=== PATIENT | female | born 1950 | race Caucasian/White ===

== ENCOUNTER 2016-12-15 01:18 | Emergency (ER) | payer OTHER ==
[~2016-12-15] VITALS: Ht 154.9 cm; Wt 93.8 kg
[2016-12-15 01:23] VITALS: Ht 154.9 cm; Wt 93.8 kg
--- OUTSIDE RECORDS SUMMARY | 2016-12-15 01:23 | XMS REPORT | Continuity of Care Document ---
Author Author [facility] Organization [facility] Address Unknown Phone Unavailable Allergies Active Description Code Type Severity Reaction Onset Reported/Identified Relationship to Patient Clinical Status Yes No Known Allergies Drug Allergy 12/27/2011 Yes No Known Allergies Drug Allergy N/A N/A 12/27/2011 Yes No Known Drug Allergies Drug Allergy 12/27/2011 Yes No Known Drug Allergies Drug Allergy N/A N/A 12/27/2011 Yes No Known Food Allergies Food Allergy 12/27/2011 Yes No Known Food Allergies Food Allergy N/A N/A 12/27/2011 Medications Problems Date Dx Coded Attending Type Code Diagnosis Diagnosed By 08/10/2012 Rosette Herzog MD Final 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 08/10/2012 Rosette Herzog MD Final 427.89 OTH CARDIAC DYSRHYTHMIAS 08/10/2012 Rosette Herzog MD Final 786.50 CHEST PAIN NOS 08/10/2012 Rosette Herzog MD Final 794.31 NONSPECIFIC ABN EKG/ECG 09/09/2012 Rosette Herzog MD Final 240.9 GOITER NOS 09/09/2012 Rosette Herzog MD Final 246.9 THYROID DISORDER NOS 09/09/2012 Rosette Herzog MD Admitting 789.00 ABDOMINAL PAIN-SITE NOS 09/09/2012 Rosette Herzog MD Admitting 240.9 GOITER NOS 12/01/2012 Kevin Greene MD Final 724.01 SPINAL STENOSIS-THORACIC 12/01/2012 Kevin Greene MD Admitting 724.5 BACKACHE NOS 12/01/2012 Kevin Greene MD Final 805.2 FX DORSAL VERTEBRA-CLOSE 12/01/2012 Kevin Greene MD External E885.9 FALL FROM TRIPPING NEC Procedures Results Encounters ACCT No. Visit Date/Time Discharge Status Pt. Type Provider Facility Loc./Unit Complaint [id number] 12/01/2012 09:58:00 2012 23:59:59 CLS Outpatient Ramona BOOGIE, Kevin Pineda [facility] [id number] 09/09/2012 08:50:00 2012 23:59:59 CLS Outpatient Mino BOOGIE, Rosette Cash [facility] [id number] 08/10/2012 09:00:00 2012 23:59:59 CLS Outpatient Mino BOOGIE, Rosette Wang [facility]
[2016-12-15] MEDS ORDERED: NORMAL SALINE 1,000 ML IV ONE (01:45)
[2016-12-15] MEDS ORDERED: HYDROMORPHONE 2mg/ml INJECTION IV ONE (01:45)
[2016-12-15] MEDS ORDERED: ORPHENADRINE 60mg/2ml INJECTION IV ONE (01:45)
[2016-12-15] MEDS ORDERED: KETOROLAC 30mg/ml INJECTION IV ONE (01:45)
--- NOTE | 2016-12-15 01:47 | ERPDOC ---
Departure Disposition Decision Date: December 15, 2016 Disposition Decision Time: 03:24 Disposition: 01 DISCHARGED HOME, SELF-CARE Impression Impression Impression: Primary Impression: Back muscle spasm Additional Impression: Intercostal muscle pain Severity: Severe Condition: Improved Seen By: Physician only Patient Instructions: Back Pain (ED) Problems/Meds/Labs Reviewed?: Yes Medications reviewed and manag: Yes Additional Instructions: Take ibuprofen 600 mg 4 times daily or Aleve 2 tablets twice daily for baseline pain control Take baclofen 10 mg one tablet 3 times daily for the next 2 days, then as needed at any time for muscle spasms/muscle pain Follow up care ordered?: Yes Mental Status: Alert Scripts Baclofen (Baclofen) 10 Mg Tablet 10 MG PO TID for SPASMS, #30 TAB 0 Refills Prov: JOHNNA RIOJAS MD 12/15/16 HPI - Back Pain General Chief Complaint: Back Pain or Injury Stated Complaint: BACK PAIN,CHEST PAIN Time Seen by Provider: 01:23 Source: patient Exam Limitations: no limitations HPI - Back Pain Initial Comments 3 days hx of left rhomboid back pain with periodic sharp pains radiating through to the chest. No known injury, but worse with deep breath, turning the head to the left, or reaching out forward with the left hand. No dyspnea, fevers/chills, or abd complaint. Occurred At: home Onset/Timing: Gradual Severity/Quality: moderate, severe Location: T-spine 1 - moderate to severe back pain with tenderness to palpation Associated Sypmtoms: DENIES: fever, loss of bladder control, loss of bowel control, lower back pain, muscle spasms, numbness in legs/feet, sensory/motor loss, tingling in legs/feet, weakness Hx of Similar Symptoms: No Allergies: Coded Allergies: No Known Drug Allergies (Verified Allergy, Unknown, 12/15/16) Past History Past Medical History Cardiac: PSVT Review of Systems Constitutional Constitutional: DENIES: appetite decrease, appetite increase, chills, dizziness , fever, weakness ENMT Ears: DENIES: pain Hearing: DENIES: hearing loss, tinnitus Balance: DENIES: vertigo Mouth/Throat: DENIES: change in swallowing, change in voice, hoarsness, painful swallowing, sore throat Cardiovascular Cardiac: DENIES: chest pain, dyspnea on exertion Rhythm/Rate: DENIES: irregular beat, palpitations, tachycardia Vascular: DENIES: pedal edema Pulmonary Respiratory: DENIES: cough, dyspnea, pleuritic chest pain GI Upper Abdomen: DENIES: dysphagia, heartburn/indigestion, nausea, pain, vomiting Lower Abdomen: DENIES: blood in stool, constipation, diarrhea, pain General: DENIES: burning, dysuria, frequency, pain, urgency Musculoskeletal General: pain, tenderness, DENIES: cramps, joint pain, joint swelling, weakness Integumentary Skin: DENIES: rash, sores Neurological General: DENIES: headache, numbness, tingling, vertigo, weakness Psychiatric Psychiatric: DENIES: anxiety, depression, nervousness Physical Exam General General Nourishment: well nourished, well developed, appears stated age, no acute distress General Body Habitus: well groomed Vitals and Pain First Documented Vital Signs Date Time Temp Pulse Resp B/P Pulse Ox O2 Delivery O2 Flow Rate FiO2 12/15/16 01:23 98.7 73 22 148/66 93 Room Air Weight: Kilograms: Height (feet): Height (inches): Triage Pain Scale: RN VS reviewed by Provider: Yes Normal Exams: Head: Normocephalic w/o trauma Eyes: Pupils are PERRLA w/ EOMI, No scleral icterus, irritation, or foreign bodies noted ENMT: No facial trauma, nasal exudates, pharyngeal erythema, or exudates are noted Neck: Full range of motion, without adenopathy, JVD, bruits or thyromegaly Chest/Resp: Clear all hardy, with good airflow, and symmetry bilaterally CV: Regular rate and rhythm, without murmur or gallop, Pulses 2+ all extremities, capillary refill, <2 seconds all ext., no pedal edema noted Abdomen: Bowel sounds positive, soft, non-tender, non-distended, no hepatosplenomegaly, masses or bruits noted Lymphatic: No lymphadenopathy, or lymphedema noted Integumentary: No rashes, hives, or bruising noted, hair and nails, without abnormality Neurologic: Patient is alert, and oriented, cranial nerves, motor/sensory/ cerebellar, exams w/o gross deficits, to observation Psychiatric: Patient exhibits, appropriate attention, emotion and affect Musculoskeletal (brief) Musculoskeletal Brief: FOUND: spasm, tenderness, NOT FOUND: deformity, loss of motion Comments left rhomboid tenderness with tenderness along isolated left lateral and anterior intercostal region. Palpation reproduces pt's sx. Progress Results/Orders Orders Procedure Category Date Status Time Iv Lock (Ed Only) EDM 12/15/16 Transmitted 01:37 Cbc W/Auto LAB 12/15/16 Complete Diff-Reflex Manual Cmp - Comprehensive LAB 12/15/16 Complete Metabolic Chest, Pa & Lateral RAD 12/15/16 Taken EKG EKG 12/15/16 Logged Troponin I W LAB 12/15/16 Complete Hemolysis Index Ketorolac (Toradol) PHA 12/15/16 Complete 01:45 Orphenadrine (Norflex) PHA 12/15/16 Complete 01:45 Hydromorphone PHA 12/15/16 Complete (Dilaudid) 01:45 Normal Saline (Normal PHA 12/15/16 Complete Saline Iv) 01:45 Baclofen (Baclofen 10 PHA 12/15/16 Transmitted Mg (Prepack)) 03:30 Lab Results Laboratory Tests Test 12/15/16 01:51 White Blood Count 8.6T/MM3 Red Blood Count 3.92M/MM3 Hemoglobin 12.1GM/DL Hematocrit 36.7% Mean Corpuscular Volume 93.6UM3 Mean Corpuscular Hemoglobin 30.9UUG Mean Corpuscular Hemoglobin Concent 33.0GM/DL RDW Standard Deviation 47.9FL Platelet Count 94T/MM3 Mean Platelet Volume 13.0UM3 Immature Granulocyte % (Auto) 0.1% Neutrophils (%) (Auto) 63.6% Lymphocytes (%) (Auto) 26.8% Monocytes (%) (Auto) 8.4% Eosinophils (%) (Auto) 0.7% Basophils (%) (Auto) 0.4% Absolute Immature Granulocyte (auto 0.01T/MM3 Absolute Neutrophils (auto) 5.5T/MM3 Absolute Lymphocytes (auto) 2.3T/MM3 Absolute Monocytes (auto) 0.7T/MM3 Absolute Eosinophils (auto) 0.1T/MM3 Absolute Basophils (auto) 0.0T/MM3 Turbidity < 20 Sodium Level 142MEQ/L Potassium Level 3.9MEQ/L Chloride Level 102MEQ/L Carbon Dioxide Level 28MEQ/L Anion Gap 12MEQ/L Blood Urea Nitrogen 12.0MG/DL Creatinine 0.8MG/DL Glomerular Filtration Rate Calc 72 BUN/Creatinine Ratio 15RATIO Glucose Level 110MG/DL Calculated Osmolality 274MOSM/KG Calcium Level 9.5MG/DL Total Bilirubin 0.50MG/DL Icterus Index < 2 Aspartate Amino Transf (AST/SGOT) 18U/L Alanine Aminotransferase (ALT/SGPT) 28U/L Alkaline Phosphatase 78U/L Troponin I < 0.012ng/ml Total Protein 7.2G/DL Albumin 4.4G/DL Globulin 2.8G/DL Albumin/Globulin Ratio 1.6RATIO Chemistry Specimen Hemolysis < 15 Medications Current ED Medications Ketorolac Tromethamine (Toradol) 30 mg O ONCE IV Last administered on 02:07; Start 12/15/16 at 01:45; Stop 12/15/16 at 01:46; Status DC Orphenadrine Citrate (Norflex) 60 mg O ONCE IV Last administered on 12/15/16 02:04; Start 12/15/16 at 01:45; Stop 12/15/16 at 01:46; Status DC Hydromorphone HCl 0.5 mg 0.5 mg O ONCE IV Last administered on 12/15/16 02:03 ; Start 12/15/16 at 01:45; Stop 12/15/16 at 01:46; Status DC Sodium Chloride (Normal Saline IV) 1,000 ml @ 0 mls/hr Q0M ONCE IV Last administered on 12/15/16 02:02; Start 12/15/16 at 01:45; Stop 12/15/16 at 01:46 ; Status DC Progress Progress CBC, CMP, troponin all normal EKG shows normal sinus rhythm without ischemia, ectopy, or infarction Chest x-ray is normal Patient given 1 L normal saline IV fluid bolus, Toradol, Norflex, Dilaudid 0.5 mg IV to relief of symptoms. Patient got a little "high" after Dilaudid, and will prefer potent medications Given prescription and pack for baclofen to use with NSAIDs at home JOHNNA RIOJAS MD December 15, 2016 01:47
--- OUTSIDE RECORDS SUMMARY | 2016-12-15 01:49 | XMS REPORT | Continuity of Care Document ---
Author Author [facility] Organization [facility] Address Unknown Phone Unavailable Allergies [...] Status Pt. Type Provider Facility Loc./Unit Complaint [id number] 12/01/2012 09:58:00 2012 23:59:59 CLS Outpatient Ramona BOOGIE, Kevin iPneda [facility] [id number] 09/09/2012 08:50:00 2012 23:59:59 CLS Outpatient Mino BOOGIE, Rosette Cash [facility] [id number] 08/10/2012 09:00:00 2012 23:59:59 CLS Outpatient Mino BOOGIE, Rosette Wang [facility]
[2016-12-15 02:05] LABS: BASOPHILS % (AUTO) 0.4 % (0-2); EOSINOPHILS # (AUTO) 0.1 T/MM3 (0-0.5); EOSINOPHILS % (AUTO) 0.7 % (0-4); HCT - HEMATOCRIT 36.7 % (36-46); HGB - HEMOGLOBIN 12.1 GM/DL (12-16); IMMATURE GRANULOCYTE # (AUTO) 0.01 T/MM3 (0.00-0.03); IMMATURE GRANULOCYTE % (AUTO) 0.1 % (0.0-0.5); LYMPHOCYTES # (AUTO) 2.3 T/MM3 (1-4.8); LYMPHOCYTES % (AUTO) 26.8 % (23-45); MEAN CORPUSCULAR HGB 30.9 UUG (26-34); MEAN CORPUSCULAR VOLUME 93.6 UM3 (80-100); MONOCYTES # (AUTO) 0.7 T/MM3 (0-0.8); MONOCYTES % (AUTO) 8.4 % (0-9.0); NEUTROPHILS #(AUTO)-ABSOLUTE 5.5 T/MM3 (1.8-7.7); NEUTROPHILS % (AUTO) 63.6 % (33-66); RED BLOOD COUNT 3.92 M/MM3 (4.00-5.20); WBC - WHITE BLOOD COUNT 8.6 T/MM3 (4.5-11.0)
--- NOTE | 2016-12-15 02:11 | NUR ---
IMAGING PT TO IMAGING AT THIS TIME
[2016-12-15 02:12] LABS: ALBUMIN 4.4 G/DL (3.5-5.0); ALBUMIN/GLOBULIN RATIO 1.6 RATIO (1.1-2.2); ALKALINE PHOSPHATASE 78 U/L (38-126); ALT (SGPT) 28 U/L (9-52); ANION GAP 12 MEQ/L (5-15); AST (SGOT) 18 U/L (14-36); BUN/CREATININE RATIO 15 RATIO (6-26); CALCIUM 9.5 MG/DL (8.4-10.2); CHLORIDE 102 MEQ/L (98-107); CO2 - CARBON DIOXIDE 28 MEQ/L (22-30); CREATININE 0.8 MG/DL (0.7-1.2); GLOMERULAR FILTRATION RATE 72; GLUCOSE 110 MG/DL (65-110); POTASSIUM 3.9 MEQ/L (3.6-5); SODIUM 142 MEQ/L (134-144); TOTAL PROTEIN 7.2 G/DL (6.3-8.2)
--- NOTE | 2016-12-15 02:27 | NUR ---
IMAGING PT RETURN FROM IMAGING AT THIS TIME.
[2016-12-15] MEDS ORDERED: LORA10TA7 PO (02:36)
[2016-12-15] MEDS ORDERED: ESCI20TA PO (02:36)
[2016-12-15] MEDS ORDERED: GABA400C PO (02:36)
[2016-12-15] MEDS ORDERED: SIMV40TA5 PO (02:36)
[2016-12-15] MEDS ORDERED: CHOL50006 PO (02:36)
[2016-12-15] MEDS ORDERED: UBID100C10 PO (02:36)
[2016-12-15] MEDS ORDERED: ACYC200C PO (02:36)
[2016-12-15] MEDS ORDERED: PANT40TA PO (02:36)
[2016-12-15] MEDS ORDERED: GABA-354 PO (02:36)
[2016-12-15] MEDS ORDERED: DIPH25TA54 PO (02:36)
[2016-12-15] MEDS ORDERED: LEVO125T11 PO (02:36)
[2016-12-15] MEDS ORDERED: ALPR0.5T8 PO (02:36)
[2016-12-15] MEDS ORDERED: SOTA80TA PO (02:36)
[2016-12-15] MEDS ORDERED: LUTE40CA PO (02:36)
[2016-12-15] MEDS ORDERED: BACL10TA PO (03:25)
[2016-12-15] MEDS ORDERED: BACLOFEN 10 MG TABLET #3 (PrePack) SENT HOME ONE (03:30)
[2016-12-15 03:33] VITALS: BP 113/59; PULSE 66; RESP 22; TEMP 98.7; O2SAT 90
--- NOTE | 2016-12-15 03:33 | NUR ---
DEPART PT GIVEN DI FOR BACK PAIN, BACLOFEN, F/U. RX/PREPAK PROVIDED FOR BACLOFEN. PT VERBALIZES UNDERSTANDING OF DI, MED, F/U. QUESTIONS ASKED/RESEARCH EXECUTIVE - DENIES FURTHER QUESTIONS/NEEDS AT THIS TIME. PT REPORTS IMPROVEMENT IN PAIN - 0/10 RATING AT THIS TIME. IV SITE REMOVED. PERSONAL BELONGINGS GATHERED. PT AMBULATED/ESCORTED TO ED EXIT - GAIT STABLE, NO SIGN OF DISTRESS. FAMILY TO DRIVE PT HOME.
--- NOTE | 2016-12-15 09:38 | DI ---
INDICATION: ITS.REASON: left chest pain PROCEDURE: CHEST 2-VIEWS UPRIGHT (PA \T\ LAT) Encounter: Initial COMPARISON: None FINDINGS: Minimal linear atelectasis or scarring in the left costophrenic angle. Lungs are otherwise clear. There is no pleural effusion or pneumothorax. The heart size, mediastinal contours and pulmonary vascularity are within normal limits. Degenerative change in the spine with age indeterminate lower thoracic compression fracture at T12. IMPRESSION: No acute cardiopulmonary disease. .
== END 2016-12-15 03:33 | disposition home or self-care (01) ==
LOC: ED 01:18
DX: M62.830 Muscle spasm of back (principal); R07.82 Intercostal pain
CPT/HCPCS: 71020; 80053; 84484; 85025; 93005; 96361; 96374; 96375; 99284; J1170; J1885; J2360; J7030